=== PATIENT | male | born 1950 | race Caucasian/White ===

== ENCOUNTER 2017-01-15 18:07 | Inpatient (IN) | payer OTHER ==
[~2017-01-15] VITALS: Ht 177.8 cm; Wt 102.0 kg
[2017-01-15 19:10] LABS: HEMATOCRIT 40.6 % (38.0-50.0); MCH 33.3 PG (29.0-34.0); MCV 97.8 FL (86-99); MEAN PLAT.VOLUME 9.9 uM^3 (9.0-12.4); PLATELET COUNT 78 K/uL (156-360); RBC DIS.WIDTH-CV 15.5 % (11.8-14.6); RED BLOOD COUNT 4.15 M/uL (4.00-5.50); WHITE BLOOD COUNT 5.8 K/uL (4.1-10.2)
[2017-01-15 19:18] LABS: CHLORIDE 112 mEq/L (99-109); POTASSIUM 3.6 mEq/L (3.7-5.4); SODIUM 144 mEq/L (136-147)
[2017-01-15 19:20] LABS: GLUCOSE 106 mg/dL (70-99)
[2017-01-15 19:21] LABS: ANION GAP 12 MEQ/L (2-14)
[2017-01-15 19:22] LABS: TOTAL BILIRUBIN 3.4 mg/dL (0.0-1.0)
[2017-01-15 19:23] LABS: SERUM ETHYL ALCOHOL < 10 mg/dL
[2017-01-15 19:24] LABS: ALKALINE PHOSPHATASE 136 IU/L (3-129)
[2017-01-15 19:25] LABS: UREA NITROGEN (BUN) 13 mg/dL (9-23)
[2017-01-15 19:32] LABS: GFR ESTIMATE (CALCULATED) > 59 mL/min/
[2017-01-15 20:15] LABS: AMPHETAMINE NEGATIVE (500 ng/mL); BARBITURATES NEGATIVE (200 ng/mL); BENZODIAZEPINES NEGATIVE (150 ng/mL); COCAINE NEGATIVE (150 ng/mL); INTERNAL CONTROLS VALID? YES; METHADONE PRESUMPTIVE POSITIVE (200 ng/mL); METHAMPHETAMINE NEGATIVE (500 ng/mL); OPIATES (MORPHINE) NEGATIVE (100 ng/mL); OXYCODONE NEGATIVE (100 ng/mL); PHENCYCLIDINE NEGATIVE (25 ng/mL); PROPOXYPHENE NEGATIVE (300 ng/mL); THC CANNABINOIDS NEGATIVE (50 ng/mL); TRICYCLIC ANTIDEPRESSANTS NEGATIVE (300 ng/mL)
[2017-01-15] MEDS ORDERED: CONSTULOSE10 GM/15 M PO (21:23)
[2017-01-15] MEDS ORDERED: VOLTAREN75 MG PO (23:26)
[2017-01-15] MEDS ORDERED: DETROL LA4 MG PO (23:26)
[2017-01-15] MEDS ORDERED: TERAZOSIN HCL5 MG PO (23:26)
[2017-01-15] MEDS ORDERED: GABAPENTIN300 MG PO (23:26)
[2017-01-15] MEDS ORDERED: ZOLOFT100 MG PO (23:27)
[2017-01-15] MEDS ORDERED: PROTONIX40 MG PO (23:27)
[2017-01-15] MEDS ORDERED: METHADONE10 MG PO (23:27)
[2017-01-15] MEDS ORDERED: GLIPIZIDE XL5 MG PO (23:27)
[2017-01-16 00:45] VITALS: BP 183/72
[2017-01-16 03:58] VITALS: BP 164/71
[2017-01-16 07:31] LABS: HEMATOCRIT 36.6 % (38.0-50.0); MCH 33.3 PG (29.0-34.0); MCHC 33.6 G/DL (30.0-36.0); MCV 99.2 FL (86-99); MEAN PLAT.VOLUME 10.3 uM^3 (9.0-12.4); PLATELET COUNT 72 K/uL (156-360); RBC DIS.WIDTH-CV 15.7 % (11.8-14.6); RBC DIS.WIDTH-SD 57.6 % (39-53); RED BLOOD COUNT 3.69 M/uL (4.00-5.50)
[2017-01-16 07:32] LABS: ADD MIUA? YES; BILIRUBIN NEGATIVE; BLOOD SMALL; COLOR AMBER ((YELLOW)); GLUCOSE (STRIP) NEGATIVE; KETONES NEGATIVE; LEUKOCYTES MODERATE; NITRITE NEGATIVE; PROTEIN (STRIP) NEGATIVE; SPECIFIC GRAVITY 1.015 (1.000-1.030)
[2017-01-16 07:40] VITALS: BP 159/87
[2017-01-16 07:42] LABS: INTER. NORMALIZED RATIO 1.4; PROTHROMBIN TIME 14.8 (9.2-11.2)
[2017-01-16 07:51] LABS: POINT-OF-CARE METER ID UU14174225
[2017-01-16 07:54] LABS: BACTERIA NONE SEEN /HPF; EPITHELIAL CELLS RARE /HPF; MUCUS TRACE /LPF; RED BLOOD CELLS 15-20 /HPF (0-5); UCUL ADDED? NO
[2017-01-16 07:59] LABS: ALKALINE PHOSPHATASE 94 IU/L (3-129); ANION GAP 8 MEQ/L (2-14); CHLORIDE 110 MEQ/L (99-109); GFR ESTIMATE (CALCULATED) > 59 mL/min/; GLUCOSE 100 mg/dL (70-99); POTASSIUM 3.6 MEQ/L (3.7-5.4); SAMPLE HEMOLYSIS CHECK 0; SAMPLE ICTERIC CHECK 1; SAMPLE LIPEMIA CHECK 0; SODIUM 144 MEQ/L (136-147); TOTAL BILIRUBIN 3.8 MG/DL (0.0-1.0); UREA NITROGEN (BUN) 11 mg/dL (9-23)
[2017-01-16 11:23] LABS: POINT-OF-CARE METER ID UU14174225
[2017-01-16 11:41] VITALS: BP 158/80
[2017-01-16 15:17] VITALS: BP 151/82
[2017-01-16 20:00] VITALS: BP 157/76
[2017-01-16 20:27] LABS: ANTI-HEPATITIS A VIRUS (IGM) Nonreactive; HAV INDEX 0.63
[2017-01-17] VITALS (7 sets, daily range): BP systolic 132–169; BP diastolic 63–93
[2017-01-17 01:28] LABS: EOSINOPHIL (%) 3.8 % (0-5); EOSINOPHIL COUNT 0.2 K/uL (0-0.3); HEMATOCRIT 39.5 % (38.0-50.0); IMMATURE GRANULOCYTE (%) 0.2 % (0.0-0.7); INSTRUMENT ABS NEUTROPHIL CT 2.9 K/uL; LYMPHOCYTE COUNT 1.7 K/uL (1.0-2.8); MCH 33.2 PG (29.0-34.0); MCHC 33.4 G/DL (30.0-36.0); MCV 99.5 FL (86-99); MEAN PLAT.VOLUME 9.9 uM^3 (9.0-12.4); MONOCYTE (%) 11.2 % (3-12); MONOCYTE COUNT 0.6 K/uL (0-0.8); NEUTROPHIL (%) 53.4 % (45-76); NEUTROPHIL COUNT 2.9 K/uL (1.8-6.4); PLATELET COUNT 74 K/uL (156-360); RBC DIS.WIDTH-CV 15.4 % (11.8-14.6); RED BLOOD COUNT 3.97 M/uL (4.00-5.50); WHITE BLOOD COUNT 5.5 K/uL (4.1-10.2)
[2017-01-17 01:41] LABS: MAGNESIUM 1.2 mg/dL (1.3-2.7)
[2017-01-17 01:43] LABS: CHLORIDE 109 mEq/L (99-109); POTASSIUM 3.7 mEq/L (3.7-5.4); SODIUM 142 mEq/L (136-147)
[2017-01-17 01:45] LABS: TOTAL BILIRUBIN 3.4 mg/dL (0.0-1.0)
[2017-01-17 01:46] LABS: ALKALINE PHOSPHATASE 104 IU/L (3-129); GLUCOSE 112 mg/dL (70-99)
[2017-01-17 01:47] LABS: ANION GAP 9 MEQ/L (2-14); TOTAL BILIRUBIN 3.3 mg/dL (0.0-1.0)
[2017-01-17 01:49] LABS: ALKALINE PHOSPHATASE 104 IU/L (3-129); GFR ESTIMATE (CALCULATED) > 59 mL/min/
[2017-01-17 01:50] LABS: UREA NITROGEN (BUN) 9 mg/dL (9-23)
[2017-01-17 02:46] LABS: GLOBULINS 3.3 G/DL (2.3-3.5); IRON 145 MCG/DL (35-150)
[2017-01-17 19:38] LABS: TROP-I INTERPRETATION NEGATIVE; TROPONIN-I 0.03 ng/mL (0.0-0.30)
[2017-01-17 21:52] LABS: POINT-OF-CARE METER ID UU14174225
[2017-01-18 04:00] VITALS: BP 129/69
[2017-01-18 07:45] LABS: ALKALINE PHOSPHATASE 92 IU/L (3-129); ANION GAP 9 MEQ/L (2-14); CHLORIDE 106 MEQ/L (99-109); GFR ESTIMATE (CALCULATED) > 59 mL/min/; GLUCOSE 96 mg/dL (70-99); POTASSIUM 3.8 MEQ/L (3.7-5.4); SAMPLE HEMOLYSIS CHECK 0; SAMPLE ICTERIC CHECK 1; SAMPLE LIPEMIA CHECK 0; SODIUM 140 MEQ/L (136-147); TOTAL BILIRUBIN 3.5 MG/DL (0.0-1.0); UREA NITROGEN (BUN) 12 mg/dL (9-23)
[2017-01-18 07:48] LABS: TROP-I INTERPRETATION NEGATIVE; TROPONIN-I 0.04 ng/mL (0.0-0.30)
[2017-01-18 08:01] VITALS: BP 153/68
[2017-01-18 10:42] LABS: ANTI-HEPATITIS B CORE (IGM) Nonreactive; HBC IgM INDEX 0.78
[2017-01-18 11:51] LABS: POINT-OF-CARE METER ID UU14174225
[2017-01-18 12:00] VITALS: BP 172/85
[2017-01-18 12:12] LABS: TROP-I INTERPRETATION NEGATIVE; TROPONIN-I 0.03 ng/mL (0.0-0.30)
[2017-01-18 13:31] LABS: ALBUMIN 3.14 G/DL (3.6-4.9); ALBUMIN PERCENT 50.7 %; ALPHA-1 GLOBULIN 0.22 G/DL (0.15-0.40); ALPHA-1 PERCENT 3.6 %; ALPHA-2 GLOBULIN 0.61 G/DL (0.45-0.85); ALPHA-2 PERCENT 9.8 %; BETA PERCENT 7.7 %; GAMMA PERCENT 28.2 %
[2017-01-18 13:32] LABS: SERUM GEL NO. 38-4
[2017-01-18 15:48] VITALS: BP 162/85
[2017-01-18 16:57] LABS: POINT-OF-CARE METER ID UU14174225
[2017-01-18 19:31] VITALS: BP 132/78
[2017-01-19 00:15] VITALS: BP 141/82
[2017-01-19 04:31] VITALS: BP 133/76
[2017-01-19 08:37] VITALS: BP 179/80
[2017-01-19 09:31] LABS: ANION GAP 9 MEQ/L (2-14); CHLORIDE 105 MEQ/L (99-109); SAMPLE HEMOLYSIS CHECK 0; SAMPLE ICTERIC CHECK 1; SAMPLE LIPEMIA CHECK 0; SODIUM 140 MEQ/L (136-147)
[2017-01-19 09:37] LABS: GFR ESTIMATE (CALCULATED) > 59 mL/min/; GLUCOSE 118 mg/dL (70-99); UREA NITROGEN (BUN) 7 mg/dL (9-23)
[2017-01-19 10:44] LABS: HCV RNA (LOG IU/mL) 3.9 (<1.18)
[2017-01-19 15:53] VITALS: BP 175/84
[2017-01-19 19:57] VITALS: BP 131/83
[2017-01-19 23:56] VITALS: BP 142/81
[2017-01-20 04:06] VITALS: BP 139/76
[2017-01-20 07:31] VITALS: BP 131/69
[2017-01-20 09:52] LABS: AHBS INDEX 185.16; HEPATITIS B SURFACE ANTIBODY REACTIVE
[2017-01-20 09:56] LABS: HPCA INDEX 10.67
[2017-01-20 11:04] VITALS: BP 127/65
[2017-01-20 11:05] LABS: POINT-OF-CARE METER ID UU14188625
[2017-01-20 15:06] VITALS: BP 148/69
[2017-01-20 16:04] LABS: POINT-OF-CARE METER ID UU14188625
[2017-01-20 20:00] VITALS: BP 137/73
[2017-01-21] VITALS: BP 163/77
[2017-01-21 04:00] VITALS: BP 144/97
[2017-01-21 07:30] VITALS: BP 118/67
[2017-01-21] MEDS ORDERED: K-DUR20 MEQ PO (12:29)
[2017-01-21] MEDS ORDERED: Chronulac,Cephulac,E PO (12:29)
[2017-01-21] MEDS ORDERED: METHADONE10 MG PO (12:29)
[2017-01-21] MEDS ORDERED: XIFAXAN550 MG PO (12:29)
[2017-01-21] MEDS ORDERED: LISINOPRIL10 MG PO (12:29)
== END 2017-01-21 16:00 | DRG 71 ==
LOC: EME 18:07 → EDOF 22:39 → 5SOUTH 22:39
PROVIDERS: Emergency Medicine; Hospitalist; Internal Medicine; Internal Medicine Cardiovascular Disease; Nurse Practitioner Adult Health; Physician Assistant Medical; Specialist
DX: G93.41 Metabolic encephalopathy (principal); K74.60 Unspecified cirrhosis of liver; B19.20 Unspecified viral hepatitis C without hepatic coma; I48.92 Unspecified atrial flutter; D69.59 Other secondary thrombocytopenia; E87.6 Hypokalemia; R27.0 Ataxia, unspecified; R01.1 Cardiac murmur, unspecified; E88.09 Other disorders of plasma-protein metabolism, not elsewhere classified; E11.9 Type 2 diabetes mellitus without complications; R60.0 Localized edema; G89.29 Other chronic pain; M54.5 Low back pain; M25.569 Pain in unspecified knee; Z79.891 Long term (current) use of opiate analgesic; I10 Essential (primary) hypertension; R29.6 Repeated falls; R25.1 Tremor, unspecified; E66.3 Overweight; Z68.32 Body mass index [BMI] 32.0-32.9, adult; D64.9 Anemia, unspecified; F17.210 Nicotine dependence, cigarettes, uncomplicated; Z85.820 Personal history of malignant melanoma of skin
CPT/HCPCS: 70450; 70551; 71020; 76705; 80048; 80053; 80076; 81003; 81256 90; 82140; 82390; 82607; 82728; 82746; 82948; 83540; 83735; 84100; 84165; 84443; 84466; 84484; 85025; 85027; 85610; 86705; 86706; 86709; 86803; 87340; 87522 90; 87902 90; 93005; 93306; 93970; 95819; 97530 GO; 97530 GP; 99281; 99285; G0480; J1650; J3475